=== PATIENT | male | born 1975 | race Two or more races ===

== ENCOUNTER 2019-09-08 09:54 | Emergency (ER) | payer SELFPAY ==
[~2019-09-08] VITALS: Ht 175.3 cm; Wt 81.6 kg
[2019-09-08] MEDS ORDERED: oxyCODONE/APAP 7.5/325 1 TAB TABLET PO ONE (10:30)
--- NOTE | 2019-09-08 10:50 | RAD ---
FOOT RIGHT 3V, ANKLE RIGHT 3V Clinical Indication: Pain after falling onto feet from back of truck yesterday. Comparison: None. Ankle Findings: There is no acute fracture or dislocation. The ankle mortise is intact. There is no ankle joint effusion. There is minimal lateral ankle soft tissue swelling. Foot findings: There is acute traumatic mildly comminuted nondisplaced fracture of the calcaneus. The bony alignment is normal. No other acute fracture the foot is identified. There is no soft tissue abnormality. IMPRESSION: Acute traumatic mildly comminuted nondisplaced fracture of the calcaneus. If surgery is planned, CT may be useful. Electronically signed by: Boogie Jones MD (09/08/2019 10:47 AM) [id number]
--- NOTE | 2019-09-08 10:58 | RAD ---
EXAM: Pelvis and right hip, 3 views. HISTORY: Fall. Pain. COMPARISON: None. FINDINGS: A frontal view the pelvis and frontal and frog-leg views of the right hip are obtained. There is no fracture, dislocation or subluxation. There is an incidental right os acetabulum. IMPRESSION: No acute osseous finding. Electronically signed by: Maritza Quick MD (09/08/2019 10:55 AM) [id number]
--- NOTE | 2019-09-08 11:17 | PHYS DOC ---
Past Medical History Past Medical History: No Pertinent History Past Surgical History: Other Additional Past Surgical Histo: L ANKLE ORIF Alcohol Use: Heavy Additional Information: DRINKS 16 OUNCE BEER DAILY Drug Use: None Adult General Chief Complaint Chief Complaint: LOWEREXTREMITY INJURY HPI HPI Patient is a 44 year old male who presents to the emergency department with complaints of right heel and right hip pain after a fall approximately 10 feet out of the back of a truck yesterday. Patient states he landed on his feet. He denies hitting his head or any loss of consciousness. He currently rates his pain a 10 out of 10 on the pain scale, he states that the pain increases with weightbearing. He denies any alleviating factors. Review of Systems Review of Systems Constitutional: Denies fever or chills [] Musculoskeletal: see HPI Integument: Denies rash or skin lesions [] Neurologic: Denies headache, focal weakness or sensory changes [] All other systems were reviewed and found to be within normal limits, except as documented in this note. Current Medications Current Medications Current Medications Medications (Trade) Dose Ordered Sig/Nessa Start Time Stop Time Status Last Admin Dose Admin Oxycodone/ Acetaminophen (Percocet 7.5/ 325) 1 tab 1X ONCE 09/08/19 10:30 09/08/19 10:31 DC 09/08/19 10:37 1 TAB Allergies Allergies Allergies Coded Allergies Type Severity Reaction Last Updated Verified No Known Drug Allergies 09/08/19 No Physical Exam Physical Exam Constitutional: Well developed, well nourished, moderate distress, non-toxic appearance. [] HENT: Normocephalic, atraumatic, bilateral external ears normal, nose normal. [] Eyes: PERRLA, EOMI, conjunctiva normal, no discharge. [] Neck: Normal range of motion, no stridor. [] Cardiovascular:Heart rate regular rhythm Lungs & Thorax: Respirations even and unlabored, no retractions, no respiratory distress Skin: Warm, dry, no erythema, no rash; R heal bruising present [] Extremities: R hip TTP, R heel TTP, no obvious deformities, 2+ swelling to R ankle and heel, no cyanosis, no clubbing, ROM of R foot limited due to pain, R hip ROM intact Neurologic: Alert and oriented X 3, no focal deficits noted. [] Psychologic: Affect normal, judgement normal, mood normal. [] Current Patient Data Vital Signs Vital Signs Date Time Temp Pulse Resp B/P (MAP) Pulse Ox O2 Delivery O2 Flow Rate FiO2 09/08/19 10:37 19 98 Room Air 09/08/19 09:57 98.9 105 160/97 (118) 98.9 EKG EKG [] Radiology/Procedures Radiology/Procedures PROCEDURE: ANKLE RIGHT 3V FOOT RIGHT 3V, ANKLE RIGHT 3V Clinical Indication: Pain after falling onto feet from back of truck yesterday. Comparison: None. Ankle Findings: There is no acute fracture or dislocation. The ankle mortise is intact. There is no ankle joint effusion. There is minimal lateral ankle soft tissue swelling. Foot findings: There is acute traumatic mildly comminuted nondisplaced fracture of the calcaneus. The bony alignment is normal. No other acute fracture the foot is identified. There is no soft tissue abnormality. IMPRESSION: Acute traumatic mildly comminuted nondisplaced fracture of the calcaneus. If surgery is planned, CT may be useful. PROCEDURE: HIP RIGHT 2V WITH PELVIS EXAM: Pelvis and right hip, 3 views. HISTORY: Fall. Pain. COMPARISON: None. FINDINGS: A frontal view the pelvis and frontal and frog-leg views of the right hip are obtained. There is no fracture, dislocation or subluxation. There is an incidental right os acetabulum. IMPRESSION: No acute osseous finding. PROCEDURE: CT LOWER EXTREMITY WO RIGHT PQRS Compliance Statement: One or more of the following individualized dose reduction techniques were utilized for this examination: 1. Automated exposure control 2. Adjustment of the mA and/or kV according to patient size 3. Use of iterative reconstruction technique CT LOWER EXTREMITY WO RIGHT Clinical Indication: Right heel and hip pain after falling onto feet from back of truck. Comparison: Right foot radiographs, earlier same day. TECHNIQUE: Helical CT imaging of the foot and ankle is performed without IV contrast. Findings: There is acute traumatic comminuted fracture of the calcaneus. Fractures are not significantly displaced. There is a dominant fracture line vertically through the body. There is an oblique longitudinal fracture line. No acute fracture of the midfoot or forefoot is seen. The bony articulations are maintained. The mineralization is normal. No acute fracture of the ankle. Ankle mortise is intact. Mild lateral ankle soft tissue swelling. There is subcutaneous edema of the hindfoot. The Achilles tendon is intact. No obvious abnormality of flexor and extensor tendons. Small ankle joint effusion. IMPRESSION: Acute traumatic comminuted fracture of the calcaneus. Course & Med Decision Making Course & Med Decision Making Pertinent Labs and Imaging studies reviewed. (See chart for details) dx: R calcaneus fx 1105- Dr. Quintana bulky U splint, non-weight bearing, follow-up with foot and a nkle at 1120- Spoke with Dr. Jelani Rizzo at orthopedics will have patient call the office at [phone] to schedule follow-up appointment. Pt will be placed in bulky posterior RLE splint and given crutches. Patient was placed in a bulky right lower extremity splint and given crutch gait instructions. Prescription for oxycodone. Patient instructed to follow-up with Dr. Rizzo, call the office today to schedule follow-up appointment. Return to the emergency room if symptoms worsen. Patient verbalized an understanding of home care, medications, follow-up, and return to ED instructions and was in agreement with the plan of care. [] Dragon Disclaimer Dragon Disclaimer This electronic medical record was generated, in whole or in part, using a voice recognition dictation system. Departure Departure Impression: Primary Impression: Closed right calcaneal fracture Disposition: 01 HOME, SELF-CARE Condition: STABLE Referrals: NO PCP (PCP) Patient Instructions: Calcaneal Fracture Additional Instructions: Fill prescription(s) and use as directed. Recommend application of ice, elevation, and rest of affected extremity. DO NOT BEAR ANY WEIGHT ON YOUR RIGHT LEG, USE THE CRUTCHES PROVIDED. Wear the splint that was placed until follow up appointment with Dr. Jelnai Rizzo at orthopedics. Call [phone] today to schedule the appointment. Return to the ER if your symptoms worsen. Scripts Oxycodone/Apap 5-325 (PERCOCET 5-325 MG TABLET ) 1 Each Tablet 1 TAB PO QIDPRN PRN for PAIN MDD 4 Tablet(s) for 5 Days, #20 TAB 0 Refills Prov: SAIMA JACOBSEN APRN 09/08/19 Splinting Splinting : Location: [facility] Hand-Made Type: orthoglass (R leg posterior splint with bulky padding of the ankle/heel) Splint: posterior short leg Pre-Proc Neuro Vasc Exam: normal Post-Proc Neuro Vasc Exam: normal, unchanged from pre-exam Progress pt tolerated procedure well, no complications. Problem Qualifiers Primary Impression: Closed right calcaneal fracture Encounter type: initial encounter Calcaneus location: unspecified portion of calcaneus Fracture alignment: nondisplaced Qualified Codes: S92.001A - Unspecified fracture of right calcaneus, initial encounter for closed fracture SAIMA JACOBSEN [employer]AL[employer] AND [employer]IABILITY ENGINEER Sep 08, 2019 11:17
--- NOTE | 2019-09-08 11:35 | RAD ---
PQRS Compliance Statement: One or more of the following individualized dose reduction techniques were utilized for this examination: 1. Automated exposure control 2. Adjustment of the mA and/or kV according to patient size 3. Use of iterative reconstruction technique CT LOWER EXTREMITY WO RIGHT Clinical Indication: Right heel and hip pain after falling onto feet from back of truck. Comparison: Right foot radiographs, earlier same day. TECHNIQUE: Helical CT imaging of the foot and ankle is performed without IV contrast. Findings: There is acute traumatic comminuted fracture of the calcaneus. Fractures are not significantly displaced. There is a dominant fracture line vertically through the body. There is an oblique longitudinal fracture line. No acute fracture of the midfoot or forefoot is seen. The bony articulations are maintained. The mineralization is normal. No acute fracture of the ankle. Ankle mortise is intact. Mild lateral ankle soft tissue swelling. There is subcutaneous edema of the hindfoot. The Achilles tendon is intact. No obvious abnormality of flexor and extensor tendons. Small ankle joint effusion. IMPRESSION: Acute traumatic comminuted fracture of the calcaneus. Electronically signed by: Boogie Jones MD (09/08/2019 11:33 AM) [id number]
[2019-09-08] MEDS ORDERED: OXYC1TAB15 PO (12:28)
[2019-09-08 12:52] VITALS: BP 169/96
== END 2019-09-08 13:19 | disposition home or self-care (01) ==
LOC: ER 09:54
DX: S92.001A Unspecified fracture of right calcaneus, initial encounter for closed fracture (principal); M25.551 Pain in right hip; F10.20 Alcohol dependence, uncomplicated; Y90.9 Presence of alcohol in blood, level not specified; W17.89XA Other fall from one level to another, initial encounter; Y93.89 Activity, other specified; Y92.89 Other specified places as the place of occurrence of the external cause; Y99.8 Other external cause status
CPT/HCPCS: 29515; 73502; 73610; 73630; 73700; 99284